=== PATIENT | female | born 2000 | race African-American/Black ===

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

== ENCOUNTER 2019-03-10 15:17 | Observation (INO) | payer MEDICAID ==
[~2019-03-10] VITALS: Ht 149.9 cm; Wt 74.4 kg
[2019-03-10] MEDS ORDERED: TERBUTALINE SULFATE 1 MG/ML 1ML VIAL SC SCH (16:15)
[2019-03-10] MEDS ORDERED: LACTATED RINGER'S 1,000 ML IV ONE (16:23)
[2019-03-10 17:22] LABS: Alcohol, Urine < 3.0 mg/dL (0-5); Amphetamine Screen, Urine NEGATIVE (NEGATIVE); Barbiturate Scree,Urine NEGATIVE (NEGATIVE); Benzodiazephine Screen, Urine NEGATIVE (NEGATIVE); Cannabinoid Screen, Urine NEGATIVE (NEGATIVE); Cocaine Screen, Urine NEGATIVE (NEGATIVE); Opiate Scree,Urine NEGATIVE (NEGATIVE); Phencyclidine Screen, Urine NEGATIVE (NEGATIVE)
== END 2019-03-10 19:21 | disposition home or self-care (01) | DRG 563 ==
LOC: LDRP 15:17
PROVIDERS: ADMIT Obstetrics & Gynecology; ATTEND Obstetrics & Gynecology
DX: O60.03 Preterm labor without delivery, third trimester (principal); O26.893 Other specified pregnancy related conditions, third trimester; R11.0 Nausea; Z3A.34 34 weeks gestation of pregnancy
CPT/HCPCS: 59025; 76805; 80307; 81002; 96372; G0378; J3105

== ENCOUNTER 2019-03-30 21:51 | Observation (INO) | payer MEDICAID ==
[~2019-03-30] VITALS: Ht 149.9 cm; Wt 77.1 kg
== END 2019-03-31 00:09 | disposition home or self-care (01) | DRG 566 ==
LOC: LDRP 21:51
PROVIDERS: ADMIT Obstetrics & Gynecology; ATTEND Obstetrics & Gynecology
DX: O62.9 Abnormality of forces of labor, unspecified (principal); Z3A.36 36 weeks gestation of pregnancy
CPT/HCPCS: 59025; 76818; 81002; G0378

== ENCOUNTER 2019-04-11 19:15 | Observation (INO) | payer MEDICAID ==
[~2019-04-11] VITALS: Ht 147.3 cm; Wt 81.6 kg
[2019-04-11] MEDS ORDERED: ACETAMINOPHEN 325 MG TAB PO ONE ×2 (20:15→20:42)
== END 2019-04-11 21:21 | disposition home or self-care (01) | DRG 566 ==
LOC: LDRP 19:15
PROVIDERS: ADMIT Specialist; ATTEND Specialist
DX: O62.9 Abnormality of forces of labor, unspecified (principal); Z3A.38 38 weeks gestation of pregnancy
CPT/HCPCS: 59025; 81002; G0378

== ENCOUNTER 2019-04-14 08:21 | Observation (INO) | payer MEDICAID ==
[~2019-04-14] VITALS: Ht 149.9 cm; Wt 81.6 kg
[2019-04-14] MEDS ORDERED: PREN-96 PO (09:08)
[2019-04-14] MEDS ORDERED: FERR-7 PO (09:09)
== END 2019-04-14 10:00 | disposition home or self-care (01) | DRG 566 ==
LOC: LDRP 08:21
PROVIDERS: ADMIT Obstetrics & Gynecology; ATTEND Specialist
DX: O26.893 Other specified pregnancy related conditions, third trimester (principal); M54.9 Dorsalgia, unspecified; R51 Headache; Z3A.39 39 weeks gestation of pregnancy
CPT/HCPCS: 76818; G0378; 59025; 81002

== ENCOUNTER 2019-06-15 23:13 | Emergency (ER) | payer MEDICAID ==
[~2019-06-15] VITALS: Ht 149.9 cm; Wt 63.5 kg
[~2019-06-15 23:13] MED LIST: ACET-1156 PO; FERR-7 PO
[2019-06-15] MEDS ORDERED: ACETAMINOPHEN 325 MG TAB PO ONE (23:30)
[2019-06-16 00:20] LABS: Basophils # (auto) 0 uL; Basophils % (auto) 0.2 % (0.0-2.0); Eosinophils # (auto) 0 uL; Hematocrit 34.5 % (36.0-46.0); White Blood Cell 15.4 10^3/uL (4.4-10.8)
[2019-06-16 00:22] LABS: Hemoglobin 10.9 g/dL (12.2-16.2); Lymphocytes # (auto) 1.8 uL; Lymphocytes % (auto) 11.6 % (10.0-50.0); Mean Corpuscular Hemoglobin 23.2 pg (28.0-32.0); Mean Corpuscular Hgb Conc. 31.5 g/dL (32.0-36.0); Mean Corpuscular Volume 73.8 fL (80.0-100.0); Monocytes # (auto) 1.3 uL; Monocytes % (auto) 8.2 % (0.0-12.0); Neutrophils # (auto) 12.3 uL; Platelet Count (auto) 267 10^3/uL (140-450); Red Blood Cells 4.67 10^6/uL (4.0-5.20)
[2019-06-16 00:33] LABS: Urine Bacteria MANY /hpf (None Seen); Urine Blood 1+ /uL (Negative); Urine Mucus FEW (None Seen); Urine Specific Gravity 1.016 (1.001-1.035); Urine WBC 213 /hpf (0 - 5)
[2019-06-16 00:39] LABS: INR 1.06 (0.9-1.15); Partial Thromboplastin Time 28.3 sec (23.64-32.05)
[2019-06-16 00:43] LABS: Albumin 3.7 g/dL (3.4-5.0); BUN/Creatinine Ratio 6.4; Potassium 3.3 mmol/L (3.5-5.1)
[2019-06-16 00:45] LABS: Bilirubin, Total 0.4 mg/dL (0.2-1.0); Total Protein 8.1 g/dL (6.4-8.2)
[2019-06-16] MEDS ORDERED: SODIUM CHLORIDE 0.9% 1,000 ML IV ONE (03:30)
[2019-06-16] MEDS ORDERED: cefTRIAXone 1GM/50ML D5W 50 ML IV ONE (03:30)
[2019-06-16] MEDS ORDERED: KETOROLAC TROMETH 30 MG/ML 1ML VIAL IM ONE (03:30)
[2019-06-16 03:54] LABS: INR 1.09 (0.9-1.15); Partial Thromboplastin Time 28.8 sec (23.64-32.05)
[2019-06-16 05:38] VITALS: BP 112/50
== END 2019-06-16 05:52 | disposition home or self-care (01) ==
LOC: EDBD 23:13 → ER 23:18
DX: N20.0 Calculus of kidney (principal); N13.9 Obstructive and reflux uropathy, unspecified; N39.0 Urinary tract infection, site not specified; F17.210 Nicotine dependence, cigarettes, uncomplicated
CPT/HCPCS: 36415; 74176; 80053; 81001; 81025; 82150; 83605; 83690; 83735; 85025; 85610; 85730; 87040; 94761; 96365; 96372; 99284; J0696; J1885; J7030

== ENCOUNTER 2021-01-15 13:09 | Emergency (ER) | payer MEDICAID ==
[~2021-01-15] VITALS: Ht 149.9 cm; Wt 54.4 kg
[2021-01-15 13:37] LABS: Urine WBC None Seen /hpf (0 - 5)
[2021-01-15] MEDS ORDERED: PANTOPRAZOLE 40 MG/10 ML VIAL INJ IV STA (13:38)
[2021-01-15 13:45] LABS: Urine Bacteria NONE SEEN /hpf (None Seen); Urine Blood TRACE /uL (Negative); Urine Specific Gravity 1.009 (1.001-1.035)
[2021-01-15] MEDS ORDERED: MORPHINE SULFATE 4 MG/ML SYR/VIAL IV ONE (13:45)
[2021-01-15] MEDS ORDERED: SODIUM CHLORIDE 0.9% 1,000 ML IVB ONE (13:45)
[2021-01-15] MEDS ORDERED: PROCHLORPERAZINE EDISYLATE 5 MG/ML 2ML VIAL IV ONE (13:45)
[2021-01-15 13:57] LABS: Basophils # (auto) 0.1 10 ^3/uL (0-0.2); Basophils % (auto) 0.6 % (0.0-2.0); Eosinophils # (auto) 0.2 10 ^3/uL (0-0.8); Eosinophils % (auto) 2.2 % (0.0-7.0); Hematocrit 39.3 % (36.0-46.0); Hemoglobin 13.3 g/dL (12.2-16.2); Lymphocytes # (auto) 3.3 10 ^3/uL (0.4-5.4); Lymphocytes % (auto) 32.1 % (10.0-50.0); Mean Corpuscular Hemoglobin 28.4 pg (28.0-32.0); Mean Corpuscular Hgb Conc. 33.7 g/dL (32.0-36.0); Mean Corpuscular Volume 84.1 fL (80.0-100.0); Monocytes # (auto) 0.7 10 ^3/uL (0-1.3); Monocytes % (auto) 6.5 % (0.0-12.0); Neutrophils % (auto) 58.6 % (37.0-80.0); Nucleated Red Blood Cells % 0.1 %; Platelet Count (auto) 228 10^3/uL (140-450); Red Blood Cells 4.67 10^6/uL (4.0-5.20); Red Cell Distribution Width 13.9 % (11.8-14.3); White Blood Cell 10.2 10^3/uL (4.4-10.8)
[2021-01-15 14:12] LABS: Albumin 3.8 g/dL (3.4-5.0); Calcium 9.2 mg/dL (8.5-10.1); Potassium 3.9 mmol/L (3.5-5.1)
[2021-01-15 14:16] LABS: BUN/Creatinine Ratio 12.8; Bilirubin, Total 0.4 mg/dL (0.2-1.0); Total Protein 7.7 g/dL (6.4-8.2)
[2021-01-15 14:29] VITALS: BP 116/82
== END 2021-01-15 15:30 | disposition home or self-care (01) ==
LOC: ER 13:09
DX: R11.10 Vomiting, unspecified (principal); F12.10 Cannabis abuse, uncomplicated; Z79.899 Other long term (current) drug therapy
CPT/HCPCS: 36415; 80053; 81001; 81025; 83690; 85025; 96361; 96374; 96375; 99284; C9113; J0780; J2270